=== PATIENT | female | born 1985 | race African-American/Black ===

== ENCOUNTER 2017-03-24 18:37 | Emergency (ER) | payer OTHER ==
[~2017-03-24] VITALS: Ht 172.7 cm; Wt 111.6 kg
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
[~2017-03-24 18:37] MED LIST: ANUSOL; BENADRYL25 MG PO; BIRTH CONTROL PILL; COLACE PO; FAMOTIDINE PO; IBUPROFEN PO; INDOCIN SR75 MG PO; LO/OVRAL-281 TAB PO; METRONIDAZOLE PO; MOTRIN600 MG PO; NAPROSYN500 MG PO; NAPROXEN PO; NO MEDICATIONS; PERCOCET PO; PREDNISONE PO; SKELAXIN PO
[2017-03-24] MEDS ORDERED: FERRO-TIME325 MG PO (18:55)
[2017-03-24] MEDS ORDERED: PRENATAL FORMU1 EACH PO (18:55)
== END 2017-03-25 01:40 ==
LOC: SED 18:37
DX: O9A.213 Injury, poisoning and certain other consequences of external causes complicating pregnancy, third trimester (principal); S16.1XXA Strain of muscle, fascia and tendon at neck level, initial encounter; S39.012A Strain of muscle, fascia and tendon of lower back, initial encounter; Z3A.34 34 weeks gestation of pregnancy; V43.52XA Car driver injured in collision with other type car in traffic accident, initial encounter
CPT/HCPCS: 72040; 72072; 72100; 99284